=== PATIENT | female | born 1970 | race African-American/Black ===

== ENCOUNTER 2018-01-21 06:44 | Observation (INO) ==
[2018-01-21] MEDS ORDERED: ASPIRIN 325 MG TABLET PO STA (07:30)
[2018-01-21 08:11] LABS: Basophils % 0.3 % (0.0-0.8); Eosinophils # 0.1 10*3/uL (0.0-0.87); Eosinophils % 0.7 % (0.00-10.9); Hematocrit 40.9 VOL% (35.7-47.0); Hemoglobin 13.1 GM/DL (12.0-16.0); Immature Granulocytes % 0.4 %; Immature Granulocytes Absolute 0.03 #; Lymphocytes # 1.8 10*3/uL (1.4-4.0); Lymphocytes % 25.5 % (21.3-54.2); Mean Corpuscular Hemoglobin 29 PG (27-34); Mean Corpuscular Volume 89.7 FL (87-102); Mean Platelet Volume 10.6 FL (9.6-12.0); Monocytes # 0.6 10*3/uL (0.11-0.8); Monocytes % 8.7 % (1.7-12.7); Neutrophils # 4.4 10*3/uL (1.4-7.4); Neutrophils % 64.4 % (38.7-73.9); Platelet Count 241 T/CUMM (130-400); Red Blood Count 4.56 MC/CUMM (3.8-5.5); Red Cell Distribution Width 12.7 % (9.3-17.3); White Blood Count 6.9 T/CUMM (4-12)
[2018-01-21 08:19] LABS: PT Patient Result 10.4 SECS
[2018-01-21 08:34] LABS: Albumin 3.8 G/DL (3.4-5.0); Bilirubin,Total 0.5 MG/DL (0.2-1.0); Calcium 8.6 MG/DL (8.5-10.1); Osmolality,Calculated 281.1 MOS/KG (273-304); Potassium 3.7 MMOL/L (3.5-5.1)
[2018-01-21] MEDS ORDERED: PROMETHAZINE 25 MG TABLET PO PRN (11:51)
[2018-01-21] MEDS ORDERED: NABUMETONE 750 MG TABLET PO PRN (11:51)
[2018-01-21] MEDS ORDERED: CLORAZEPATE 7.5 MG TABLET PO PRN (11:51)
[2018-01-21] MEDS ORDERED: DOCUSATE SODIUM 100 MG CAPSULE PO PRN (11:53)
[2018-01-21] MEDS: traMADol 50 MG TABLET PO PRN (12:51)
[2018-01-21] MEDS ORDERED: ASPIRIN EC 81 MG TABLET PO ONE (16:00)
[2018-01-21] MEDS: MEPERIDINE 50 MG TABLET PO PRN (17:58)
[2018-01-21] MEDS: ALBUTEROL 2.5 MG/3 ML NEB RESP TX SCH (19:20)
[2018-01-21] MEDS: ESCITALOPRAM 10 MG TABLET PO SCH (21:09)
[2018-01-21] MEDS: BUDESONIDE/FORMOTEROL 160-4.5 INHALER 6 GM INH SCH (21:09)
[2018-01-22] MEDS: MEPERIDINE 50 MG TABLET PO PRN ×2 (01:26→09:36)
[2018-01-22 04:40] LABS: Risk Ratio 2.35; VLDL CHOLESTEROL 29.8 MG/DL
[2018-01-22] MEDS: ALBUTEROL 2.5 MG/3 ML NEB RESP TX SCH (07:00)
[2018-01-22] MEDS: ESCITALOPRAM 10 MG TABLET PO SCH (08:34)
[2018-01-22] MEDS: BUDESONIDE/FORMOTEROL 160-4.5 INHALER 6 GM INH SCH (08:35)
[2018-01-22] MEDS ORDERED: ROSUVASTATIN 20 MG TABLET PO SCH (09:00)
[2018-01-22] MEDS ORDERED: LOSARTAN 50 MG TABLET PO SCH (09:00)
[2018-01-22] MEDS ORDERED: amLODIPine 5 MG TABLET PO SCH (09:00)
[2018-01-22] MEDS ORDERED: METOPROLOL SUCCINATE XL 100 MG TABLET PO SCH (09:00)
[2018-01-22] MEDS ORDERED: PANTOPRAZOLE 40 MG TABLET PO SCH (09:00)
[2018-01-22] MEDS: traMADol 50 MG TABLET PO PRN (15:18)
[2018-01-22 16:26] VITALS: BP 138/88
[2018-01-22] MEDS ORDERED: LORazepam 2 MG/1 ML VIAL IV ONE (16:43)
== END 2018-01-22 19:08 | disposition home or self-care (01) ==
LOC: N.EDINP 06:44 → N.ED 06:44 → N.2W 09:06 → N.TELES 11:07
PROVIDERS: ADMIT Family Medicine; ATTEND Family Medicine

== ENCOUNTER 2018-01-28 14:36 | Observation (INO) ==
[2018-01-28] MEDS ORDERED: ACETAMINOPHEN 325 MG TABLET PO PRN (15:39)
[2018-01-28] MEDS ORDERED: PROMETHAZINE 25 MG TABLET PO PRN (15:41)
[2018-01-28] MEDS ORDERED: NABUMETONE 750 MG TABLET PO PRN (15:41)
[2018-01-28] MEDS ORDERED: traMADol 50 MG TABLET PO PRN (15:41)
[2018-01-28] MEDS ORDERED: CLORAZEPATE 7.5 MG TABLET PO PRN (15:41)
[2018-01-28] MEDS ORDERED: DEXTROSE 50% 25 GM/50 ML VIAL IV PRN (15:44)
[2018-01-28] MEDS ORDERED: GLUCAGON 1 MG VIAL IM PRN (15:44)
[2018-01-28] MEDS ORDERED: ASPIRIN EC 81 MG TABLET PO SCH (16:00)
[2018-01-28] MEDS: INSULIN LISPRO 100 UNIT/ML SUBCUT SCH ×2 (16:56→20:03)
[2018-01-28 17:22] LABS: Basophils % 0.3 % (0.0-0.8); Eosinophils # 0.1 10*3/uL (0.0-0.87); Eosinophils % 0.7 % (0.00-10.9); Hematocrit 41.5 VOL% (35.7-47.0); Hemoglobin 13.4 GM/DL (12.0-16.0); Immature Granulocytes % 0.6 %; Immature Granulocytes Absolute 0.06 #; Lymphocytes # 2.1 10*3/uL (1.4-4.0); Mean Corpuscular HGB Conc 32.3 GM/DL (32-36); Mean Corpuscular Hemoglobin 29 PG (27-34); Mean Corpuscular Volume 88.5 FL (87-102); Mean Platelet Volume 10.6 FL (9.6-12.0); Monocytes # 0.7 10*3/uL (0.11-0.8); Monocytes % 7.4 % (1.7-12.7); Platelet Count 263 T/CUMM (130-400); Red Blood Count 4.69 MC/CUMM (3.8-5.5); Red Cell Distribution Width 12.6 % (9.3-17.3)
[2018-01-28 17:44] LABS: Albumin 3.6 G/DL (3.4-5.0); Bilirubin,Total 0.8 MG/DL (0.2-1.0); Calcium 8.9 MG/DL (8.5-10.1); Osmolality,Calculated 277.3 MOS/KG (273-304); Potassium 3.7 MMOL/L (3.5-5.1); Total Protein 7.7 G/DL (6.4-8.3)
[2018-01-28] MEDS: SODIUM CHLORIDE 0.9% 1,000 ML IV SCH (17:50)
[2018-01-28] MEDS: ONDANSETRON 4 MG/2 ML VIAL IV PRN (17:55)
[2018-01-28] MEDS: ALBUTEROL 2.5 MG/3 ML NEB RESP TX SCH (19:48)
[2018-01-28] MEDS: ESCITALOPRAM 10 MG TABLET PO SCH (20:28)
[2018-01-28] MEDS: BUDESONIDE/FORMOTEROL 160-4.5 INHALER 6 GM INH SCH (20:28)
[2018-01-28] MEDS: MEPERIDINE 50 MG TABLET PO PRN (23:29)
[2018-01-29] MEDS: SODIUM CHLORIDE 0.9% 1,000 ML IV SCH ×2 (02:01→18:29)
[2018-01-29 07:01] LABS: Bacteria,Urine Occasional /HPF (Few); Mucus,Urine Occasional /LPF (Occasional); RBC,Urine <1 /HPF (0-4); Squamous Epithelial Cell,Urine Occasional /HPF (0-10); WBC,Urine <1 /HPF (0-6)
[2018-01-29 07:10] LABS: Apearance,Urine Slightly Hazy (Clear); Urine Color Yellow (Yellow); Urine Specific Gravity 1.025 (1.001-1.035)
[2018-01-29 07:11] LABS: Bilirubin,Urine Negative (Negative); Blood, Urine Negative (Negative); Glucose,Urine (UA) Negative (Negative); Ketones,Urine Negative (Negative); Nitrite,Urine Negative (Negative); Protein,Urine Negative; Urine Urobilinogen 0.2 EU/DL (0.2-1.0)
[2018-01-29] MEDS: ALBUTEROL 2.5 MG/3 ML NEB RESP TX SCH ×2 (08:26→19:25)
[2018-01-29] MEDS: amLODIPine 5 MG TABLET PO SCH (08:39)
[2018-01-29] MEDS: ROSUVASTATIN 20 MG TABLET PO SCH (08:39)
[2018-01-29] MEDS: ESCITALOPRAM 10 MG TABLET PO SCH ×2 (08:40→20:46)
[2018-01-29] MEDS: PANTOPRAZOLE 40 MG TABLET PO SCH (08:40)
[2018-01-29] MEDS: LOSARTAN 50 MG TABLET PO SCH (08:40)
[2018-01-29] MEDS: INSULIN LISPRO 100 UNIT/ML SUBCUT SCH ×4 (08:41→21:57)
[2018-01-29] MEDS: METOPROLOL SUCCINATE XL 100 MG TABLET PO SCH (08:41)
[2018-01-29] MEDS: BUDESONIDE/FORMOTEROL 160-4.5 INHALER 6 GM INH SCH ×2 (08:41→20:49)
[2018-01-29] MEDS ORDERED: LORazepam 2 MG/1 ML VIAL IV ONE (09:55)
[2018-01-29] MEDS: ONDANSETRON 4 MG/2 ML VIAL IV PRN (16:29)
[2018-01-29] MEDS: MEPERIDINE 50 MG TABLET PO PRN (20:46)
[2018-01-30] MEDS: SODIUM CHLORIDE 0.9% 1,000 ML IV SCH ×3 (00:43→23:01)
[2018-01-30] MEDS: ALBUTEROL 2.5 MG/3 ML NEB RESP TX SCH ×2 (08:36→20:07)
[2018-01-30] MEDS: ROSUVASTATIN 20 MG TABLET PO SCH (09:28)
[2018-01-30] MEDS: amLODIPine 5 MG TABLET PO SCH (09:28)
[2018-01-30] MEDS: ESCITALOPRAM 10 MG TABLET PO SCH ×2 (09:28→20:48)
[2018-01-30] MEDS: METOPROLOL SUCCINATE XL 100 MG TABLET PO SCH (09:29)
[2018-01-30] MEDS: PANTOPRAZOLE 40 MG TABLET PO SCH (09:29)
[2018-01-30] MEDS: LOSARTAN 50 MG TABLET PO SCH (09:29)
[2018-01-30] MEDS: INSULIN LISPRO 100 UNIT/ML SUBCUT SCH ×4 (09:43→23:29)
[2018-01-30] MEDS: cefTRIAXone 1,000 MG VIAL IV SCH (10:16)
[2018-01-30] MEDS: OFLOXACIN 0.3% OPH SOLN 10 ML BOTTLE BOTH EYES SCH ×4 (10:17→20:48)
[2018-01-30] MEDS: BUDESONIDE/FORMOTEROL 160-4.5 INHALER 6 GM INH SCH ×2 (10:17→20:49)
[2018-01-30] MEDS: ONDANSETRON 4 MG/2 ML VIAL IV PRN (10:23)
[2018-01-30] MEDS ORDERED: ONDANSETRON 4 MG/2 ML VIAL IV PRN (14:00)
[2018-01-30] MEDS: MEPERIDINE 50 MG TABLET PO PRN (20:48)
[2018-01-31 05:49] LABS: Basophils % 0.5 % (0.0-0.8); Eosinophils # 0.1 10*3/uL (0.0-0.87); Eosinophils % 1.6 % (0.00-10.9); Hemoglobin 11.5 GM/DL (12.0-16.0); Immature Granulocytes % 0.7 %; Immature Granulocytes Absolute 0.06 #; Lymphocytes # 2.4 10*3/uL (1.4-4.0); Lymphocytes % 26.7 % (21.3-54.2); Mean Corpuscular HGB Conc 31.1 GM/DL (32-36); Mean Corpuscular Hemoglobin 29 PG (27-34); Mean Platelet Volume 9.8 FL (9.6-12.0); Monocytes # 0.8 10*3/uL (0.11-0.8); Monocytes % 9.3 % (1.7-12.7); Neutrophils # 5.4 10*3/uL (1.4-7.4); Neutrophils % 61.2 % (38.7-73.9); Platelet Count 207 T/CUMM (130-400); Red Blood Count 4.02 MC/CUMM (3.8-5.5); Red Cell Distribution Width 12.5 % (9.3-17.3); White Blood Count 8.9 T/CUMM (4-12)
[2018-01-31 06:24] LABS: Albumin 2.9 G/DL (3.4-5.0); Osmolality,Calculated 280.1 MOS/KG (273-304); Potassium 3.8 MMOL/L (3.5-5.1); Total Protein 6.5 G/DL (6.4-8.3)
[2018-01-31 06:40] LABS: Eosinophils 2 % (0-10); Lymphocytes 30 % (20-55); Metamyelocytes 1 %; Platelet Estimate Adequate; Polychromasia Few; Segmented Neutrophils 64 % (50-85); Total Cells Counted 100
[2018-01-31] MEDS: ALBUTEROL 2.5 MG/3 ML NEB RESP TX SCH (07:03)
[2018-01-31] MEDS: INSULIN LISPRO 100 UNIT/ML SUBCUT SCH ×3 (08:31→16:25)
[2018-01-31] MEDS ORDERED: LIDOCAINE 100 MG/5 ML SYRINGE ONE (09:00)
[2018-01-31] MEDS ORDERED: PROPOFOL 200 MG/20 ML VIAL IV ONE (09:00)
[2018-01-31] MEDS: ONDANSETRON 4 MG/2 ML VIAL IV PRN (11:40)
[2018-01-31] MEDS: cefTRIAXone 1,000 MG VIAL IV SCH (12:40)
[2018-01-31] MEDS: METOPROLOL SUCCINATE XL 100 MG TABLET PO SCH (12:41)
[2018-01-31] MEDS: SODIUM CHLORIDE 0.9% 1,000 ML IV SCH (12:41)
[2018-01-31] MEDS: ROSUVASTATIN 20 MG TABLET PO SCH (12:41)
[2018-01-31] MEDS: OFLOXACIN 0.3% OPH SOLN 10 ML BOTTLE BOTH EYES SCH ×2 (12:41→12:54)
[2018-01-31] MEDS: amLODIPine 5 MG TABLET PO SCH (12:41)
[2018-01-31] MEDS: LOSARTAN 50 MG TABLET PO SCH (12:41)
[2018-01-31] MEDS: PANTOPRAZOLE 40 MG TABLET PO SCH (12:41)
[2018-01-31] MEDS: BUDESONIDE/FORMOTEROL 160-4.5 INHALER 6 GM INH SCH (12:45)
[2018-01-31] MEDS: ESCITALOPRAM 10 MG TABLET PO SCH (12:53)
[2018-01-31 14:20] LABS: Apearance,Urine CLEAR (Clear); Bacteria,Urine Occasional /HPF (Few); Bilirubin,Urine Negative (Negative); Blood, Urine Negative (Negative); Glucose,Urine (UA) Negative (Negative); Ketones,Urine Negative (Negative); Mucus,Urine Occasional /LPF (Occasional); Nitrite,Urine Negative (Negative); Protein,Urine Negative; Squamous Epithelial Cell,Urine Occasional /HPF (0-10); Urine Color Straw (Yellow); Urine Specific Gravity 1.008 (1.001-1.035); Urine Urobilinogen < 2.0 EU/DL (0.2-1.0); WBC,Urine 1 /HPF (0-6)
[2018-01-31 17:12] VITALS: BP 143/85
== END 2018-01-31 17:30 | disposition home or self-care (01) ==
LOC: N.5E
PROVIDERS: ADMIT Family Medicine; ATTEND Family Medicine

== ENCOUNTER 2018-10-23 11:10 | Observation (INO) ==
[2018-10-23] MEDS ORDERED: PROMETHAZINE 25 MG/1 ML VIAL IM PRN (12:15)
[2018-10-23] MEDS ORDERED: CLORAZEPATE 3.75 MG TABLET PO PRN (12:22)
[2018-10-23 13:13] LABS: Apearance,Urine Slightly Hazy (Clear); Bilirubin,Urine Negative (Negative); Blood, Urine Negative (Negative); Glucose,Urine (UA) Negative (Negative); Hyaline Casts,Urine 1 /LPF (0-3); Ketones,Urine Negative (Negative); Mucus,Urine Few /LPF (Occasional); Nitrite,Urine Negative (Negative); Protein,Urine Negative; RBC,Urine <1 /HPF (0-4); Squamous Epithelial Cell,Urine Occasional /HPF (0-10); Urine Color Amber (Yellow); Urine Specific Gravity 1.025 (1.001-1.035); WBC,Urine 1 /HPF (0-6)
[2018-10-23] MEDS: SODIUM CHLORIDE 0.9% 1,000 ML IV SCH ×2 (14:16→21:56)
[2018-10-23] MEDS: ACETAMINOPHEN 325 MG TABLET PO PRN ×2 (14:16→21:44)
[2018-10-23] MEDS: cefTRIAXone 1,000 MG in SYRINGE 1 EACH IV SCH (14:17)
[2018-10-23] MEDS: methylPREDNISolone SOD SUC 40 MG/1 ML VIAL IV SCH (14:22)
[2018-10-23] MEDS: ONDANSETRON 4 MG/2 ML VIAL IV PRN ×2 (14:51→21:49)
[2018-10-23 15:21] LABS: Troponin I < 0.015 NG/ML (0.00-0.045)
[2018-10-23 18:15] LABS: Troponin I < 0.015 NG/ML (0.00-0.045)
[2018-10-23] MEDS: ALBUTEROL 2.5 MG/3 ML NEB RESP TX SCH (19:50)
[2018-10-23 20:19] LABS: Troponin I < 0.015 NG/ML (0.00-0.045)
[2018-10-23] MEDS: ESCITALOPRAM 10 MG TABLET PO SCH (21:39)
[2018-10-23] MEDS: BUDESONIDE/FORMOTEROL 160-4.5 INHALER 6 GM INH SCH (21:40)
[2018-10-23] MEDS: DOCUSATE SODIUM 100 MG CAPSULE PO SCH (23:36)
[2018-10-24] MEDS: ONDANSETRON 4 MG/2 ML VIAL IV PRN (03:47)
[2018-10-24] MEDS: SODIUM CHLORIDE 0.9% 1,000 ML IV SCH (05:59)
[2018-10-24 06:32] LABS: Basophils % 0.1 % (0.0-0.8); Hematocrit 43.8 VOL% (35.7-47.0); Hemoglobin 13.7 GM/DL (12.0-16.0); Immature Granulocytes % 0.6 %; Immature Granulocytes Absolute 0.08 #; Lymphocytes # 1.3 10*3/uL (1.4-4.0); Lymphocytes % 9.7 % (21.3-54.2); Mean Corpuscular HGB Conc 31.3 GM/DL (32-36); Mean Corpuscular Volume 91.1 FL (87-102); Monocytes % 4.1 % (1.7-12.7); Neutrophils % 85.5 % (38.7-73.9); Platelet Count 306 T/CUMM (130-400); Red Blood Count 4.81 MC/CUMM (3.8-5.5); Red Cell Distribution Width 12.7 % (9.3-17.3); White Blood Count 13.8 T/CUMM (4-12)
[2018-10-24] MEDS: methylPREDNISolone SOD SUC 40 MG/1 ML VIAL IV SCH (06:59)
[2018-10-24 07:03] LABS: Albumin 3.3 G/DL (3.4-5.0); Bilirubin,Total 0.9 MG/DL (0.2-1.0); Calcium 8.6 MG/DL (8.5-10.1); Osmolality,Calculated 281.1 MOS/KG (273-304); Total Protein 7.3 G/DL (6.4-8.3)
[2018-10-24] MEDS: ALBUTEROL 2.5 MG/3 ML NEB RESP TX SCH (07:16)
[2018-10-24] MEDS ORDERED: PANTOPRAZOLE 40 MG TABLET PO SCH (09:00)
[2018-10-24] MEDS ORDERED: METOPROLOL SUCCINATE XL 100 MG TABLET PO SCH (09:00)
[2018-10-24] MEDS ORDERED: ROSUVASTATIN 20 MG TABLET PO SCH (09:00)
[2018-10-24] MEDS ORDERED: LOSARTAN 50 MG TABLET PO SCH (09:00)
[2018-10-24] MEDS ORDERED: amLODIPine 5 MG TABLET PO SCH (09:00)
[2018-10-24] MEDS: BUDESONIDE/FORMOTEROL 160-4.5 INHALER 6 GM INH SCH (09:17)
[2018-10-24] MEDS: cefTRIAXone 1,000 MG in SYRINGE 1 EACH IV SCH (09:17)
[2018-10-24] MEDS: DOCUSATE SODIUM 100 MG CAPSULE PO SCH (09:18)
[2018-10-24] MEDS: ESCITALOPRAM 10 MG TABLET PO SCH (09:19)
[2018-10-24 11:30] VITALS: BP 133/63
== END 2018-10-24 13:10 | disposition home or self-care (01) ==
LOC: N.2E
PROVIDERS: ADMIT Family Medicine; ATTEND Family Medicine

== ENCOUNTER 2019-03-11 09:23 | Observation (INO) ==
[2019-03-11] MEDS ORDERED: ASPIRIN 325 MG TABLET PO STA (10:10)
[2019-03-11] MEDS ORDERED: ALUM/MAG/SIMETH/LIDO VISC 1:1 30 ML BOTTLE PO STA (10:10)
[2019-03-11 10:14] LABS: Basophils % 0.2 % (0.0-0.8); Eosinophils % 0.4 % (0.00-10.9); Hematocrit 43.6 VOL% (35.7-47.0); Hemoglobin 13.9 GM/DL (12.0-16.0); Immature Granulocytes % 0.6 %; Immature Granulocytes Absolute 0.05 #; Lymphocytes # 1.8 10*3/uL (1.4-4.0); Lymphocytes % 19.9 % (21.3-54.2); Mean Corpuscular HGB Conc 31.9 GM/DL (32-36); Mean Corpuscular Volume 90.5 FL (87-102); Mean Platelet Volume 10.1 FL (9.6-12.0); Monocytes % 6.7 % (1.7-12.7); Neutrophils % 72.2 % (38.7-73.9); Platelet Count 263 T/CUMM (130-400); Red Blood Count 4.82 MC/CUMM (3.8-5.5); Red Cell Distribution Width 12.9 % (9.3-17.3)
[2019-03-11 10:41] LABS: Albumin 3.6 G/DL (3.4-5.0); Bilirubin,Total 0.8 MG/DL (0.2-1.0); Calcium 8.5 MG/DL (8.5-10.1); Osmolality,Calculated 288.7 MOS/KG (273-304); Total Protein 7.1 G/DL (6.4-8.3)
[2019-03-11] MEDS ORDERED: NITROGLYCERIN SL 0.4 MG TABLET SL PRN (11:03)
[2019-03-11] MEDS ORDERED: ENOXAPARIN 120 MG/0.8 ML SYRINGE SUBCUT SCH (11:30)
[2019-03-11] MEDS: ONDANSETRON 4 MG/2 ML VIAL IV PRN ×2 (12:51→22:31)
[2019-03-11] MEDS ORDERED: CLORAZEPATE 3.75 MG TABLET PO PRN (16:03)
[2019-03-11] MEDS ORDERED: GLUCAGON 1 MG VIAL IM PRN (16:03)
[2019-03-11] MEDS ORDERED: DEXTROSE 50% 25 GM/50 ML VIAL IV PRN (16:03)
[2019-03-11] MEDS: INSULIN LISPRO 100 UNIT/ML SUBCUT SCH ×2 (19:30→22:03)
[2019-03-11] MEDS: ALBUTEROL 2.5 MG/3 ML NEB RESP TX SCH (20:18)
[2019-03-11] MEDS: DOCUSATE SODIUM 100 MG CAPSULE PO SCH (22:02)
[2019-03-11] MEDS: BUDESONIDE/FORMOTEROL 160-4.5 INHALER 6 GM INH SCH (22:03)
[2019-03-12] MEDS: ALBUTEROL 2.5 MG/3 ML NEB RESP TX SCH ×2 (07:28→19:35)
[2019-03-12] MEDS ORDERED: LACTATED RINGERS 1,000 ML IV SCH (08:00)
[2019-03-12] MEDS ORDERED: traMADol 50 MG TABLET PO PRN (08:45)
[2019-03-12] MEDS ORDERED: propofoL 200 MG/20 ML VIAL IV ONE (10:00)
[2019-03-12] MEDS ORDERED: LIDOCAINE 2% 5 ML VIAL ONE (10:00)
[2019-03-12] MEDS: ONDANSETRON 4 MG/2 ML VIAL IV PRN ×2 (11:30→20:43)
[2019-03-12] MEDS: ACETAMINOPHEN 325 MG TABLET PO PRN ×2 (12:20→20:40)
[2019-03-12] MEDS ORDERED: MEPERIDINE 25 MG/1 ML VIAL IV ONE (13:28)
[2019-03-12] MEDS: INSULIN LISPRO 100 UNIT/ML SUBCUT SCH ×3 (14:18→20:57)
[2019-03-12] MEDS: PANTOPRAZOLE 40 MG TABLET PO SCH (14:19)
[2019-03-12] MEDS: METOPROLOL SUCCINATE XL 100 MG TABLET PO SCH (14:19)
[2019-03-12] MEDS: LOSARTAN 50 MG TABLET PO SCH (14:19)
[2019-03-12] MEDS: BUDESONIDE/FORMOTEROL 160-4.5 INHALER 6 GM INH SCH ×2 (14:19→20:58)
[2019-03-12] MEDS: ROSUVASTATIN 20 MG TABLET PO SCH (14:19)
[2019-03-12] MEDS: FUROSEMIDE 40 MG TABLET PO SCH (14:19)
[2019-03-12] MEDS: DOCUSATE SODIUM 100 MG CAPSULE PO SCH ×2 (14:19→20:39)
[2019-03-12] MEDS: amLODIPine 5 MG TABLET PO SCH (14:19)
[2019-03-13] MEDS: ALBUTEROL 2.5 MG/3 ML NEB RESP TX SCH (07:18)
[2019-03-13] MEDS: INSULIN LISPRO 100 UNIT/ML SUBCUT SCH (08:46)
[2019-03-13] MEDS: LOSARTAN 50 MG TABLET PO SCH (09:34)
[2019-03-13] MEDS: ROSUVASTATIN 20 MG TABLET PO SCH (09:34)
[2019-03-13] MEDS: DOCUSATE SODIUM 100 MG CAPSULE PO SCH (09:34)
[2019-03-13] MEDS: PANTOPRAZOLE 40 MG TABLET PO SCH (09:35)
[2019-03-13] MEDS: BUDESONIDE/FORMOTEROL 160-4.5 INHALER 6 GM INH SCH (09:35)
[2019-03-13] MEDS: amLODIPine 5 MG TABLET PO SCH (09:35)
[2019-03-13] MEDS: FUROSEMIDE 40 MG TABLET PO SCH (09:35)
[2019-03-13] MEDS: METOPROLOL SUCCINATE XL 100 MG TABLET PO SCH (09:36)
[2019-03-13 12:19] VITALS: BP 125/73
== END 2019-03-13 13:40 | disposition home or self-care (01) ==
LOC: N.ED 09:23 → N.EDINP 09:23 → N.2W 12:30
PROVIDERS: ADMIT Family Medicine; ATTEND Family Medicine